=== PATIENT | female | born 1955 | race Caucasian/White ===

== ENCOUNTER → 2016-09-17 | Outpatient (CLI) | payer OTHER ==
--- NOTE | 2016-09-18 08:21 | MM ---
Reason for exam: screening (asymptomatic). Last mammogram was performed 1 year and 3 months ago. History: Patient is postmenopausal. Physical Findings: A clinical breast exam by your physician is recommended on an annual basis and results should be correlated with mammographic findings. MG Screening Mammo w CAD Bilateral CC and MLO view(s) were taken. Prior study comparison: June 03, 2015, bilateral MG screening mammo w CAD. June 04, 2013, bilateral screening mammogram free. There are scattered fibroglandular densities. No significant changes when compared with prior studies. ASSESSMENT: Benign, BI-RAD 2 RECOMMENDATION: Routine screening mammogram of both breasts in 1 year.
== END | disposition home or self-care (01) ==
LOC: RADMAMWWP 13:20
PROVIDERS: ATTEND Family Medicine
DX: Z12.31 Encounter for screening mammogram for malignant neoplasm of breast (principal)

== ENCOUNTER → 2017-09-10 | Outpatient (CLI) | payer BC ==
--- NOTE | 2017-09-10 21:56 | MR ---
EXAMINATION TYPE: MR lumbar spine wo con DATE OF EXAM: 09/10/2017 9:50 PM COMPARISON: NONE HISTORY: Low Back Pain x5 years Multiplanar, MultiSpin echo imaging of the lumbar spine was performed. L1-L2: Mild disc desiccation mild posterior disc bulge. No herniation protrusion or central stenosis. No evidence for foraminal encroachment. L2-L3: Mild disc desiccation mild posterior disc bulge. No herniation protrusion or central stenosis. No evidence for foraminal encroachment. L3-L4: Moderate disc desiccation. Moderate circumferential disc bulge. Hypertrophy of the ligamentum flavum and facet joint arthropathy result in moderate central stenosis. Trefoiling of the cauda equin a. Facet joint arthropathy with bilateral foraminal encroachment. L4-L5: Severe disc desiccation. Anterolisthesis L4 and L5 measuring 8.5 mm. Pseudodisc resulting in s evere central stenosis. Hypertrophy of the ligamentum flavum and facet joint arthropathy. Moderate bi lateral foraminal encroachment. L5-S1: Retrolisthesis L5 on S1 measuring 4.5 mm. Severe disc desiccation. Posterocentral disc herniat ion with mild effacement ventral thecal sac. No evidence for central stenosis. Facet joint arthropath y resulting in moderate bilateral foraminal encroachment. Lumbar segments are intact. No paraspinal masses are identified. Conus medullaris has a normal appe arance. IMPRESSION: 1. Unavailable degenerative disc disease as discussed. 2. Central stenosis at L3-4 and L4-5. Multilevel foraminal encroachment. See above.
== END | disposition home or self-care (01) ==
LOC: RADMRIMAIN 21:03
PROVIDERS: ATTEND Family Medicine
DX: M48.061 Spinal stenosis, lumbar region without neurogenic claudication (principal); M51.36 Other intervertebral disc degeneration, lumbar region
CPT/HCPCS: 72148

== ENCOUNTER → 2019-07-13 | Outpatient (CLI) | payer BC ==
--- NOTE | 2019-07-14 09:40 | MM ---
Reason for exam: screening (asymptomatic). Last mammogram was performed 2 years and 10 months ago. History: Patient is postmenopausal. Physical Findings: A clinical breast exam by your physician is recommended on an annual basis and results should be correlated with mammographic findings. MG Screening Mammo w CAD Bilateral CC and MLO view(s) were taken. XCCL view(s) were taken of the right breast. Prior study comparison: September 17, 2016, bilateral MG screening mammo w CAD. June 03, 2015, bilateral MG screening mammo w CAD. There are scattered fibroglandular densities. No suspicious abnormality. No significant changes when compared with prior studies. ASSESSMENT: Negative, BI-RAD 1 RECOMMENDATION: Routine screening mammogram of both breasts in 1 year.
== END | disposition home or self-care (01) ==
LOC: RADMAMWWP 09:11
PROVIDERS: ATTEND Family Medicine
DX: Z12.31 Encounter for screening mammogram for malignant neoplasm of breast (principal)
CPT/HCPCS: 77067

== ENCOUNTER → 2020-08-01 | Outpatient (CLI) | payer BC ==
--- NOTE | 2020-08-01 10:29 | BD ---
EXAMINATION TYPE: Axial Bone Density DATE OF EXAM: 08/01/2020 COMPARISON: NONE CLINICAL HISTORY: Postmenopausal female. Height: 59 Weight: 191.6 FRAX RISK QUESTIONS: Alcohol (3 or more units per day): no Family History (Parent hip fracture): no Glucocorticoids (More than 3mos): no (Ex: prednisone, prednisolone, methylprednisolone, dexamethasone, and hydrocortisone). History of Fracture in Adulthood: no Secondary Osteoporosis: 1. Type 1 Diabetes: no 2. Hyperthyroidism: no 3. Menopause before 45: no 4. Malnutrition: no 5. Chronic liver disease: no Rheumatoid Arthritis: no Current Tobacco Use: no RISK FACTORS HISTORY OF: Surgery to Spine/Hip(right/left)/Wrist (right/left): lumbar fusion, left wrist When: 2018 Family History of Osteoporosis: yes Active: yes Diet low in dairy products/other sources of calcium: yes Postmenopausal woman: age 50 Lost more than 2 inches in height since high school: yes MEDICATIONS: lopressor, adderol, naproxen, sinus meds, nurotin, lexapro Additional History: EXAM MEASUREMENTS: Bone mineral densitometry was performed using the [employer]. Bone mineral density about the R hip (g/cm2): 0.738 Bone mineral density about the L hip (g/cm2): 0.748 T Score values are as follows: -----R Neck: -2.2 -----L Neck: -2.1 -----R Total: -1.6 -----L Total: -1.5 Bone mineral density : baseline Bone mineral density about the R Wrist (g/cm2): 0.534 T Score values are as follows: -----Dist. R+U: -3.1 -----Prox. R+U: -1.3 -----Radius total: -2.3 Bone mineral density : baseline IMPRESSION: Osteopenia (T Score between -2.5 and -1). There is slightly increased risk of fracture and the patient may be considered for treatment. Re-Screen 2-5 years. NOTE: T-SCORE=SD OF THE YOUNG ADULT MEAN.
== END | disposition home or self-care (01) ==
LOC: RADBDWWP 08:21
PROVIDERS: ATTEND Family Medicine
DX: M85.80 Other specified disorders of bone density and structure, unspecified site (principal); M85.88 Other specified disorders of bone density and structure, other site
CPT/HCPCS: 77080

== ENCOUNTER → 2020-09-23 | Outpatient (CLI) | payer BC ==
--- NOTE | 2020-09-23 13:48 | MR ---
EXAMINATION TYPE: MR knee LT wo con DATE OF EXAM: 09/23/2020 COMPARISON: None HISTORY: Lt knee pain TECHNIQUE: Multiplanar, multisequence imaging of the left knee is performed without IV contrast. FINDINGS: MEDIAL MENISCUS: Oblique tear posterior horn medial meniscus. Anterior horn and body are intact. LATERAL MENISCUS: Anterior and posterior horns are intact without tear. CRUCIATE LIGAMENTS: The anterior and posterior cruciate ligaments are intact and unremarkable. COLLATERAL LIGAMENTS: The medial collateral ligament and lateral collateral ligament complex are inta ct and unremarkable. EXTENSOR MECHANISM: Visualized quadriceps and patellar tendons are intact. EFFUSION: Small moderate suprapatellar joint effusion identified. POPLITEAL CYST: 4 cm Lorenzana's cyst noted. TRICOMPARTMENT SPACES: Moderate degenerative narrowing medial tibiofemoral joint space CARTILAGE: Intact BONE MARROW SIGNAL: No focal abnormal marrow signal is appreciated. OTHER: No additional significant abnormality is appreciated. IMPRESSION: 1.Oblique tear posterior horn medial meniscus. 2. Lorenzana's cyst as noted. 3. Joint effusion.
== END | disposition home or self-care (01) ==
LOC: RADMRIMAIN 11:11
PROVIDERS: ATTEND Orthopaedic Surgery
DX: S83.242A Other tear of medial meniscus, current injury, left knee, initial encounter (principal); M71.22 Synovial cyst of popliteal space [Baker], left knee; M25.462 Effusion, left knee

== ENCOUNTER 2020-12-02 08:59 | Day surgery (SDC) | payer BC ==
[2020-10-25 09:45] VITALS: BMI 39.6
--- NOTE | 2020-12-01 13:56 | HP ---
HISTORY AND PHYSICAL CHIEF COMPLAINT: Left knee pain. 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 She notes persistent medial pain along with giving way. She has been limping. She notes this significantly limits her in terms of function and activities. She has tried medications in addition to an injection with only partial temporary relief. She has also tried home exercises. PAST MEDICAL HISTORY: Significant for asthma and hypertension. PAST SURGICAL HISTORY: Seen for lumbar fusion and hand surgery. CURRENT MEDICATIONS: 1. Adderall. 2. Aleve. 3. Gabapentin. 4. Maxalt. 5. Meclizine. 6. Methocarbamol. 7. Metoprolol. 8. Tramadol. ALLERGIES: She notes allergies to NARCOTICS. FAMILY HISTORY: Significant for cancer. SOCIAL HISTORY: Negative for current tobacco or alcohol use. REVIEW OF SYSTEMS: Sixteen-point review of systems otherwise reviewed and is noncontributory. PHYSICAL EXAMINATION: On examination, the patient is approximately 4 feet 10 inches, 190 pounds of endomorphic habitus. HEENT exam is nonfocal. Neck is supple. She has painless passive motion of her left hip. Straight leg raise is negative. Active motion left knee -6 to 120 degrees of flexion. She has a moderate effusion. She is tender about the medial joint line. Collaterals are stable, Kolby is negative, Mirta's elicits medial pain. Her distal neurovascular exam appears intact to the left lower extremity. MRI report 09/23/2020 shows evidence of posterior medial meniscal tear. IMPRESSION: Left knee internal derangement with symptomatic medial meniscal tear. RECOMMENDATIONS: I talked to the patient at length regarding her condition and treatment options. At this point, she remains quite symptomatic, having pain and mechanical symptoms despite conservative measures. After thorough discussion, she opts to proceed with surgery. We will plan to proceed with arthroscopic evaluation with possible partial medial meniscectomy. Risks and benefits were discussed at length in layman's terms. We will likely perform that as an outpatient procedure. MMODL / IJN: [id number] /
[~2020-12-02 08:59] MED LIST: DEXAMETHASONE SOD PHOSPHATE 4 MG/ML 1 ML VIAL IV ONE; LACTATED RINGERS 1,000 ML IV SCH; MIDAZOLAM 2 MG/2 ML VIAL IV PRN; ONDANSETRON 4 MG/2 ML VIAL IVP ONE; fentaNYL (PF) 50 MCG/ML 2 ML AMP IV PRN
[2020-12-02] MEDS ORDERED: LIDOCAINE 1% (10MG/ML) FOR IV START INTRADERMA ONE (10:03)
[2020-12-02] MEDS ORDERED: SCOPOLAMINE 1.5MG/72HR PATCH TRANSDERM ONE (10:14)
[2020-12-02] MEDS ORDERED: KETOROLAC 15 MG/ML 1 ML VIAL ONE (10:34)
[2020-12-02] MEDS ORDERED: ACETAMINOPHEN IV (For NPO) 1,000 MG/100 ML VIAL ONE (10:34)
[2020-12-02] MEDS ORDERED: MIDAZOLAM 2 MG/2 ML VIAL ONE (10:34)
[2020-12-02] MEDS ORDERED: KETAMINE 10 MG/ML 20 ML VIAL ONE (10:34)
[2020-12-02] MEDS ORDERED: PROPOFOL 10 MG/ML 20 ML VIAL IV ONE (10:34)
[2020-12-02] MEDS ORDERED: diphenhydrAMINE 50 MG/ML 1 ML VIAL ONE (10:34)
[2020-12-02] MEDS ORDERED: SUCCINYLCHOLINE CHLORIDE 100 MG/5 ML SYR IV ONE (10:34)
--- NOTE | 2020-12-02 11:18 | P.OP ---
Date of Procedure: 12/02/20 Preoperative Diagnosis: Left knee internal derangement Postoperative Diagnosis: Left knee posterior medial meniscal tear/middle one third lateral meniscal tear Procedure(s) Performed: Left knee arthroscopic partial medial meniscectomy/partial lateral meniscectomy Anesthesia: ANETTE Surgeon: Palmer Santos Estimated Blood Loss (ml): 10 Pathology: none sent Condition: stable Disposition: PACU Indications for Procedure: Patient is a 65-year-old female who presents with progressive left knee pain and mechanical symptoms despite conservative measures. A discussion of the risks and benefits of operative intervention versus continued conservative measures was made with patient. She opted to proceed with surgery. Operative risks to include infection, neurovascular injury, development of blood clots, possible incomplete resolution of symptoms, possible worsening symptoms and need for subsequent procedures was discussed. Informed consent was obtained. Operative Findings: As below Description of Procedure: The patient was brought to the operating room, and after induction of general anesthesia examined the left knee. Collaterals were stable, Kolby was negative, and posterior drawer was negative. The left lower extremity was prepped and draped in a normal fashion. A superior lateral portal was made through a 3 mm skin incision superior and lateral to the patella. This was used for outflow. A lateral portal was made through a 5 mm vertical skin incision lateral to the patella tendon above the joint line. Diagnostic arthroscopy was performed. On inspection of the medial compartment, a complex tear involving the posterior horn of the medial meniscus in the white-junction was noted. This was debrided back to stable base with straight baskets and a motorized shaver. Upon a grade 3 chondral changes noted involving the distal medial portion of the medial femoral condyle. On inspection of the notch, the anterior cruciate ligament appeared to be intact. On inspection of the lateral compartment, a radial tear involving the middle one third of the lateral meniscus in the white- action was noted. This was debrided back to stable base with straight baskets and a motorized shaver. The remaining lateral meniscus was stable and intact. On inspection of the patellofemoral articulation there was chondral fibrillation however no loose chondral fragments.. The gutters were clear debris. The knee was then thoroughly irrigated. The portals were closed with Steri-Strips. A sterile dressing was applied in addition to a compression stocking. The patient was awoken from general anesthesia and transferred to recovery room in good condition. Blood loss was estimated at 10 mL. No complications were incurred.
[2020-12-02 11:43] VITALS: TEMP 97.3
[2020-12-02 11:47] VITALS: RESP 16
[2020-12-02 13:56] VITALS: BP 133/84; PULSE 61
== END 2020-12-02 14:22 | disposition home or self-care (01) ==
LOC: OR 08:59
PROVIDERS: ATTEND Orthopaedic Surgery
DX: S83.282A Other tear of lateral meniscus, current injury, left knee, initial encounter (principal); S83.232A Complex tear of medial meniscus, current injury, left knee, initial encounter; I10 Essential (primary) hypertension; J45.909 Unspecified asthma, uncomplicated; Z79.899 Other long term (current) drug therapy; Z88.5 Allergy status to narcotic agent; X50.3XXA Overexertion from repetitive movements, initial encounter
CPT/HCPCS: 29880; J2250; J1200; J1100; J0690; J2405; J0131; J1885; J0330; J2704

== ENCOUNTER → 2022-03-20 | Outpatient (CLI) | payer BC | END | disposition home or self-care (01) | LOC: LABPAT 12:59 | PROVIDERS: ATTEND Orthopaedic Surgery | DX: Z01.812 Encounter for preprocedural laboratory examination (principal); Z22.322 Carrier or suspected carrier of Methicillin resistant Staphylococcus aureus; M17.11 Unilateral primary osteoarthritis, right knee | CPT/HCPCS: 87070 ==

== ENCOUNTER → 2022-03-27 | Day surgery (SDC) | payer BC ==
[2022-03-22 14:25] VITALS: BMI 33.4
[~2022-03-27] MED LIST changes: +ACETAMINOPHEN TAB 500 MG TAB PO PRN; +HYDROmorphone 0.5 MG/0.5 ML SYRINGE IVP PRN; +LIDOCAINE 1% (10MG/ML) FOR IV START INTRADERMA PRN; +MELOXICAM 7.5 MG TAB PO PRN; +TRANEXAMIC ACID IN NACL,ISO-OS 1,000 MG in SALINE 1 100ML.BAG IVPB PRN; -fentaNYL (PF) 50 MCG/ML 2 ML AMP IV PRN
--- NOTE | 2022-03-27 08:16 | HP ---
HISTORY AND PHYSICAL CHIEF COMPLAINT: Right knee pain. 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 She has medial pain along with swelling. She has intermittent locking and buckling. She has pain with any weightbearing activities. She notes it significantly limits her. She has tried medications in addition to injections with only partial temporary relief. PAST MEDICAL HISTORY: Significant for asthma, hypertension, arthritis, along with lumbar stenosis. PAST SURGICAL HISTORY: Significant for lumbar fusion, previous left knee arthroscopy, and hand surgery. CURRENT MEDICATIONS: 1. Adderall. 2. Aleve. 3. Maxalt. 4. Meclizine. 5. Methocarbamol. 6. Metoprolol. 7. Tramadol. 8. Naprosyn. SENSITIVITIES: She notes sensitivity to narcotics, Cymbalta, and Wellbutrin. FAMILY HISTORY: Significant for cancer. SOCIAL HISTORY: Negative for current tobacco or alcohol use. REVIEW OF SYSTEMS: 16-point review of systems is otherwise reviewed and is noncontributory. PHYSICAL EXAMINATION: VITAL SIGNS/GENERAL: The patient is approximately 4 feet 9 inches, 175 pounds, of endomorphic habitus. HEENT: Nonfocal. NECK: Supple. MUSCULOSKELETAL: She has painless passive motion of the right hip. Straight leg raise is negative. Active motion of right knee, minus 8 to 110 degrees of flexion. She is tender about the medial joint line. She has a trace effusion. Collaterals are stable, Kolby is negative. Mirta's elicits medial pain. She has genu varum alignment. She has an antalgic gait pattern. Her distal neurovascular exam appears intact in the right lower extremity. DIAGNOSTIC DATA: Previous x-rays of the right knee obtained in the office showed severe medial compartment osteoarthrosis with [id number] changes and subchondral sclerosis. IMPRESSION: Right knee severe medial and patellofemoral compartment osteoarthrosis. RECOMMENDATIONS: I talked to the patient at length regarding her condition along with treatment options. At this point, she is quite limited because of pain related to her osteoarthrosis despite previous conservative measures. After a thorough discussion, she opts to proceed with surgery. We will plan to proceed with a right total knee arthroplasty. We will institute DVT prophylaxis postoperatively. Risks and benefits were discussed at length in layman's terms. MMODL / IJN: [id number] /
== END ==
LOC: OR 11:19
PROVIDERS: ATTEND Orthopaedic Surgery
DX: M17.11 Unilateral primary osteoarthritis, right knee (principal); Z53.09 Procedure and treatment not carried out because of other contraindication; J45.909 Unspecified asthma, uncomplicated; I10 Essential (primary) hypertension; Z98.1 Arthrodesis status; G43.909 Migraine, unspecified, not intractable, without status migrainosus; Z88.5 Allergy status to narcotic agent; Z91.040 Latex allergy status; Z91.09 Other allergy status, other than to drugs and biological substances; Z79.899 Other long term (current) drug therapy; Z80.51 Family history of malignant neoplasm of kidney; Z80.0 Family history of malignant neoplasm of digestive organs; Z80.8 Family history of malignant neoplasm of other organs or systems